=== PATIENT | male | born 1980 ===

== ENCOUNTER 2024-05-11 02:07 | Emergency (ER) | payer OTHER ==
[2024-05-11 02:29] VITALS: RESP 18
[2024-05-11 02:34] VITALS: TEMP 98.9
--- NOTE | 2024-05-11 02:40 | ERPHSYRPT ---
- History of Present Illness Time Seen by Provider: 05/11/24 02:42 Source: patient Exam Limitations: no limitations Patient Subjective Stated Complaint: PT STATES, "I HAVE BEEN TO 2 OTHER HOSPITALS THIS WEEK. MY BLOOD PRESSURE HAS BEEN REALLY HIGH. THEY TOLD ME AT [facility] THAT MY PRESSURE WASN'T HIGH ENOUGH TO NEED TREATED. MY GIRLFRIEND SAYS I TURN BLUE WHEN I COUGH. I HAVE THIS HACKY COUGH AND IM CONGESTED." Triage Nursing Assessment: PT. AMBULATED TO ROOM WITHOUT DIFFICULTY, NO SOB NOTED, RESP. EVEN NONLABORED WITH NONPRODUCTIVE COUGH., A&OX4, SKIN P/W/D. Physician History: 43-year-old male presents to our ED for evaluation of a cough sinus pressure x 1 week. Patient reports that he checks his blood pressure at home observed and it was elevated. Patient's cough is dry nonproductive. Patient feels congested. Patient has been to 2 other hospitals this week for the same thing. Patient was evaluated with blood work and EKG. Patient was advised that all was well. Patient was told his symptoms are due to a virus and that it would have to run its course. Patient's blood pressure in our ED is within normal limits. Patient otherwise asymptomatic. No chest pain. No nausea vomiting or diaphoresis. No fever. Patient ambulatory with normal gait. Patient voices no other complaints or concerns at this time. Portions of this note were created with voice recognition technology. There may be grammatical, spelling, punctuation or sound alike errors Timing/Duration: week(s) (1 week) Severity: moderate Modifying Factors: Improves With: nothing Associated Symptoms: denies symptoms Allergies/Adverse Reactions: No Known Drug Allergies Allergy (Verified 05/11/24 04:15) Hx Tetanus, Diphtheria Vaccination/Date Given: Yes Hx Influenza Vaccination/Date Given: No Hx Pneumococcal Vaccination/Date Given: No Immunizations Up to Date: No Travel Risk - International Travel Have you traveled outside of the country in past 3 weeks: No - Emerging Infectious Disease Are you exhibiting symptoms associated with any current EIDs: No - Review of Systems Constitutional: No Symptoms, No Fever, No Chills Eyes: No Symptoms Ears, Nose, & Throat: No Symptoms Respiratory: No Symptoms, No Cough, No Dyspnea Cardiac: No Symptoms, No Chest Pain, No Edema, No Syncope Abdominal/Gastrointestinal: No Symptoms, No Abdominal Pain, No Nausea, No Vomiting, No Diarrhea Genitourinary Symptoms: No Symptoms, No Dysuria Musculoskeletal: No Back Pain, No Neck Pain Skin: No Rash Neurological: No Dizziness, No Focal Weakness, No Sensory Changes Psychological: No Symptoms Endocrine: No Symptoms Hematologic/Lymphatic: No Symptoms Immunological/Allergic: No Symptoms All Other Systems: Reviewed and Negative - Past Medical History Pertinent Past Medical History: No Neurological History: No Pertinent History ENT History: No Pertinent History Cardiac History: No Pertinent History Respiratory History: No Pertinent History Endocrine Medical History: No Pertinent History Musculoskeletal History: No Pertinent History GI Medical History: No Pertinent History History: No Pertinent History Psycho-Social History: No Pertinent History Male Reproductive Disorders: No Pertinent History - Past Surgical History Past Surgical History: No Neuro Surgical History: No Pertinent History Cardiac: No Pertinent History Respiratory: No Pertinent History Gastrointestinal: No Pertinent History Genitourinary: No Pertinent History Musculoskeletal: No Pertinent History Male Surgical History: No Pertinent History - Social History Smoking Status: Never smoker Exposure to second hand smoke: No Drug Use: none - Social Determinants of Health Will the patient participate in the screening: Declined to provide - Nursing Vital Signs Nursing Vital Signs: Initial Vital Signs Pulse Rate 99 H 05/11/24 02:11 Respiratory Rate 18 05/11/24 02:11 Blood Pressure 128/87 05/11/24 02:11 O2 Sat by Pulse Oximetry 96 05/11/24 02:11 Pain Scale Pain Intensity 0 - Physical Exam General Appearance: no apparent distress, alert Eye Exam: PERRL/EOMI, eyes nml inspection Ears, Nose, Throat Exam: normal ENT inspection, TMs normal, pharynx normal, moist mucous membranes Neck Exam: normal inspection, non-tender, supple, full range of motion Respiratory Exam: normal breath sounds, lungs clear, No respiratory distress Cardiovascular Exam: regular rate/rhythm, normal heart sounds, normal peripheral pulses Gastrointestinal/Abdomen Exam: soft, normal bowel sounds, No tenderness, No mass Back Exam: normal inspection, normal range of motion, No CVA tenderness, No vertebral tenderness Extremity Exam: normal inspection, normal range of motion, pelvis stable Neurologic Exam: alert, oriented x 3, cooperative, normal mood/affect, nml cerebellar function, nml station & gait, sensation nml, No motor deficits Skin Exam: normal color, warm, dry, No rash Lymphatic Exam: No adenopathy SpO2 Interpretation: normal SpO2: 96 O2 Delivery: Room Air - Course Nursing assessment & vital signs reviewed: Yes Ordered Tests: Medication Summary Discontinued Medications Generic Name Dose Route Start Last Admin Trade Name Laura PRN Reason Stop Dose Admin Hydrocodone Bitart/Acetaminophen 10 ml 05/11/24 02:37 05/11/24 02:44 Hydrocodone/Acetaminophen 5 Ml Udcup PO 05/11/24 02:38 10 ml STAT STA Administration Hydrocodone Bitart/Acetaminophen Confirm 05/11/24 02:43 Hydrocodone/Acetaminophen 5 Ml Udcup Administered 05/11/24 02:44 Dose 10 ml .ROUTE .STK-MED ONE Prednisone 60 mg 05/11/24 02:36 05/11/24 02:44 Prednisone 20 Mg Tablet PO 05/11/24 02:37 60 mg STAT ONE Administration Prednisone Confirm 05/11/24 02:43 Prednisone 20 Mg Tablet Administered 05/11/24 02:44 Dose 60 mg .ROUTE .STK-MED ONE Lab/Rad Data: Laboratory Results 05/11/24 Range/Units 02:36 Influenza Type A Ag NEGATIVE (NEGATIVE) Influenza Type B Ag NEGATIVE (NEGATIVE) RSV (PCR) NEGATIVE (NEGATIVE) SARS-CoV-2 (PCR) NEGATIVE (NEGATIVE) Group A Strep Antibody NOT DETECTED (NEGATIVE) - Progress Progress: improved Progress Note: 43-year-old male presents to our ED for evaluation of a cough nasal congestion. Physical exam essentially nonremarkable. Lungs are clear bilaterally. Blood pressure within normal limits. RSV influenza COVID-negative. Rapid strep negative as well. Patient received a dose of prednisone in our ED. Patient also received Lortab elixir. Coughing improved. Vitals are within normal limits. No indication for further workup at this time. Will discharge home. Patient agrees to follow-up with his primary care doctor within 48 hours for reevaluation. Portions of this note were created with voice recognition technology. There may be grammatical, spelling, punctuation or sound alike errors Complexity of problem addressed is moderate acute complicated. No critical care time. Complexity of data reviewed and analyzed is moderate. Test ordered chest reviewed results analyzed and correlated clinically with history and physical exam. Risk of complication and or risk of morbidity/mortality of patient management is moderate. A prescription for albuterol inhaler as well as prednisone forwarded to patient's pharmacy. Vital stable. Time spent to discharge patient is approximately 15 minutes. Plan of care established for shared decision making. No social determinants of health present to impede follow-up. Portions of this note were created with voice recognition technology. There may be grammatical, spelling, punctuation or sound alike errors 05/11/24 04:11 05/11/24 04:12 Counseled pt/family regarding: diagnosis, need for follow-up - Departure Departure Disposition: Home Clinical Impression: Cough, Bronchitis Condition: Stable Critical Care Time: No Referrals: DOCTOR,NO FAMILY [Primary Care Provider] - Follow up/PCP as directed CAROLINE MARTINEZ MD [ACTIVE STAFF] - Follow up/PCP as directed Additional Instructions: Discharge/Care Plan MYA LEAL was seen on 05/11/24 in the Emergency Room. The patient was counseled regarding Diagnosis,Lab results, Imaging studies, need for follow up and when to return to the Emergency Room. Prescriptions given: Discharge Note I have spoken with the patient and/or caregivers. I have explained the patient's condition, diagnosis and treatment plan based on the information available to me at this time. I have answered the patient's and/or caregiver's questions and addressed any concerns. The patient and/or caregivers have as good understanding of the patient's diagnosis, condition and treatment plan as can be expected at this point. The vital signs have been stable. The patient's condition is stable and appropriate for discharge from the emergency department. The patient will pursue further outpatient evaluation with the primary care physician or other designated or consulting physician as outlined in the discharge instructions. The patient and/or caregivers are agreeable to this plan of care and follow-up instructions have been explained in detail. The patient and/or caregivers have received these instruction. The patient/and or caregivers are aware that any significant change in condition or worsening of symptoms should prompt an immediate return to this or the closest emergency department or call 911. Prescriptions: Prednisone 10 mg [Deltasone 10 mg] 40 mg PO DAILY 3 Days #12 tablet Albuterol 8 gm Mdi Hfa [Ventolin Hfa MDI] 8 gm IH Q4-6HPRN PRN #1 inh PRN Reason: Shortness Of Breath/Wheezing
[2024-05-11] MEDS ORDERED: DELTASONE 20 MG ONE (02:43)
[2024-05-11] MEDS ORDERED: HYDROCODONE-ACETAMIN 2.5-108/5 ML SOLUTION ONE (02:43)
[2024-05-11] MEDS: HYDROCODONE-ACETAMIN 2.5-108/5 ML SOLUTION PO STA (02:44)
[2024-05-11] MEDS: DELTASONE 20 MG PO ONE (02:44)
[2024-05-11 03:04] LABS: Group A Strep NOT DETECTED (NEGATIVE)
[2024-05-11 03:16] LABS: INFLUENZA A NEGATIVE (NEGATIVE); INFLUENZA B NEGATIVE (NEGATIVE); RESPIRATORY SYNCTIAL VIRUS NEGATIVE (NEGATIVE); SARS-CoV-2 Xpert Express NEGATIVE (NEGATIVE)
[2024-05-11 03:58] VITALS: O2SAT 96
[2024-05-11 04:04] VITALS: BP 141/80; PULSE 84
== END 2024-05-11 04:28 | disposition home or self-care (01) ==
LOC: ED 02:07
DX: J40 Bronchitis, not specified as acute or chronic (principal); R05.1 Acute cough; R51.9 Headache, unspecified; Z79.52 Long term (current) use of systemic steroids; Z79.899 Other long term (current) drug therapy
CPT/HCPCS: 0241U; 87651; 99283; A9270-GY